=== PATIENT | male | born 1995 | race African-American/Black ===

== ENCOUNTER 2022-05-15 22:49 | Emergency (ER) | payer OTHER ==
[~2022-05-15] VITALS: Ht 177.8 cm; Wt 104.3 kg
== END 2022-05-16 00:03 | disposition home or self-care (01) ==
LOC: ER 22:49
DX: S81.811A Laceration without foreign body, right lower leg, initial encounter (principal); W45.8XXA Other foreign body or object entering through skin, initial encounter; Y93.89 Activity, other specified; Y92.017 Garden or yard in single-family (private) house as the place of occurrence of the external cause; Y99.9 Unspecified external cause status